=== PATIENT | female | born 1995 | race American Indian/Alaskan Native ===

== ENCOUNTER 2018-07-19 03:11 | Emergency (ER) | payer OTHER ==
[2018-07-19 03:11] VITALS: BMI 28.1
[2018-07-19 03:22] VITALS: O2SAT 100
[2018-07-19] MEDS ORDERED: Promethazine/Cod 6.25mg-10mg/5ml Syr UD PO STA (03:44)
[2018-07-19] MEDS ORDERED: Albuterol 0.083% Inhal Sol (2.5 mg/3 mL) UD IH STA (03:44)
[2018-07-19] MEDS ORDERED: Promethazine/Cod 6.25mg-10mg/5ml Syr UD ONE (03:57)
[2018-07-19] MEDS ORDERED: Albuterol 0.083% Inhal Sol (2.5 mg/3 mL) UD ONE (03:58)
--- NOTE | 2018-07-19 04:43 | C.PDOC ---
History Of Present Illness 23 year old female presents to the ED for evaluation of cough, chest congestion and sore throat which began 3 days ago. Patient tried taking [id number] medicine without relief. Patient states her cough has become more persistent and reports associated chest tightness. She denies fever, chills, sick contact, recent travel or social history of smoking. Time Seen by Provider: 07/19/18 03:24 Chief Complaint (Nursing): Cough, Cold, Congestion History Per: Patient History/Exam Limitations: no limitations Onset/Duration Of Symptoms: Days (3), Persistent Current Symptoms Are (Timing): Still Present Sick Contacts (Context): None Associated Symptoms: Cough, Other (chest congestion, chest tightness ). denies: Fever Recent travel outside of the [place]: No Additional History Per: Patient Past Medical History Reviewed: Historical Data, Nursing Documentation, Vital Signs Vital Signs: Last Vital Signs Temp 98.4 F 07/19/18 03:17 Pulse 93 H 07/19/18 03:17 Resp 22 07/19/18 03:17 BP 123/72 07/19/18 03:17 Pulse Ox 100 07/19/18 03:17 - Medical History PMH: No Chronic Diseases Surgical History: No Surg Hx Family History: States: Unknown Family Hx - Social History Hx Alcohol Use: Yes Hx Substance Use: No Review Of Systems Constitutional: Negative for: Fever, Chills Respiratory: Positive for: Cough, Other (chest congestion, chest tightness ) Physical Exam - Physical Exam Appears: Non-toxic, No Acute Distress Skin: Normal Color, Warm, Dry Head: Atraumatic, Normacephalic Eye(s): bilateral: Normal Inspection Ear(s): Bilateral: Normal Nose: Normal, No Discharge Oral Mucosa: Moist Throat: Normal, No Erythema, No Exudate Neck: Supple Chest: Symmetrical, No Deformity, No Tenderness Cardiovascular: Rhythm Regular, No Murmur Respiratory: No Rales, No Rhonchi, Wheezing (scattered, expiratory ), Other (minimally decreased air entry ) Extremity: Normal ROM, Capillary Refill (less than 2 seconds ) Neurological/Psych: Oriented x3, Normal Speech, Normal Cognition ED Course And Treatment O2 Sat by Pulse Oximetry: 100 Pulse Ox Interpretation: Normal Progress Note: Albuterol INH, Prednisone PO, Promethazine/Codeine PO. On reassessment, patient is resting comfortably, remains febrile, is showing no signs of distress and stable for discharge. Patient is advised to follow up with PMD within 1-2 days for further evaluation. Disposition Counseled Patient/Family Regarding: Diagnosis, Need For Followup, Rx Given - Disposition Referrals: Margarita Garza MD [Staff Provider] - Disposition: HOME/ ROUTINE Disposition Time: 05:11 Condition: STABLE Additional Instructions: Take medications as directed Please follow up with PMD Return to ER if worse Prescriptions: Benzonatate [Tessalon Perles] 200 mg PO TID #14 sgl Cetirizine HCl [Zyrtec] 10 mg PO DAILY #14 capsule predniSONE [Prednisone] 40 mg PO DAILY #8 tab Instructions: Upper Respiratory Infection (ED) Forms: [employer] (Congolese) - Clinical Impression Clinical Impression: Upper respiratory infection - PA / PRO[employer] SPECIALIST / Resident Statement MD/DO has reviewed & agrees with the documentation as recorded. - Scribe Statement The provider has reviewed the documentation as recorded by the Scribe (Jaycee Ayon) All medical record entries made by the Scribe were at my direction and personally dictated by me. I have reviewed the chart and agree that the record accurately reflects my personal performance of the history, physical exam, medical decision making, and the department course for this patient. I have also personally directed, reviewed, and agree with the discharge instructions and disposition.
[2018-07-19 05:27] VITALS: BP 130/88; PULSE 92; RESP 20; TEMP 98.5
== END 2018-07-19 05:24 | disposition home or self-care (01) ==
LOC: C.ER 03:11
DX: J06.9 Acute upper respiratory infection, unspecified (principal)